=== PATIENT | male | born 1970 | race Caucasian/White ===

== ENCOUNTER 2020-05-24 11:25 | Emergency (ER) | payer SELFPAY ==
[~2020-05-24] VITALS: Ht 170.2 cm; Wt 81.8 kg
[2020-05-24 11:34] VITALS: BP 151/93; Ht 170.2 cm; Wt 81.8 kg
== END 2020-05-24 13:11 | disposition home or self-care (01) ==
LOC: D.ER 11:25
DX: S90.01XA Contusion of right ankle, initial encounter (principal); W22.8XXA Striking against or struck by other objects, initial encounter; Y93.9 Activity, unspecified; Y92.9 Unspecified place or not applicable